=== PATIENT | male | born 1955 | race Caucasian/White ===

== ENCOUNTER 2025-08-02 09:41 | Emergency (ER) | payer MEDICARE, SELFPAY ==
[2025-08-02] VITALS (8 sets, daily range): BP systolic 140–184; BP diastolic 73–89; BMI 26.0
--- NOTE | 2025-08-02 10:02 | EDRN ---
Dr. Willard in room w / pt at this time.
--- NOTE | 2025-08-02 10:13 | ED.GENMED ---
History of Present Illness
General
Chief Complaint: Fall
Source: patient and family (Son)
Time Seen by Provider: 08/02/25 09:54
History of Present Illness
History of Present Illness:
70-year-old male brought to the emergency room for evaluation of injuries from a fall. Patient is here with his son who is providing most of the history. Patient suffered a fall this morning and was complaining of pain to in the left lateral
thorax. No shortness of breath per se but he has significant pain with movement. Son did not witness the fall but heard his father called out for help. Patient is primarily Bosnian speaking but does understand Bangladeshi to a certain extent.
Patient does not take any prescription medications but has not seen a doctor in years. Son noted that the patient has been having a decline in his history over the past year. He is very slow to answer questions with a 1 to 2-second pause sometimes
between hearing a question and answering it. Patient's movements are also very slow. Patient drinks about 8 beers a day.
Phy Exam
Physical Exam
Physical Exam:
General: Awake, Alert, Oriented X3. No acute distress. Quite thin, chronically ill-appearing
Vitals: Mild hypertension
Head: Atraumatic
Eyes: Pupils equal, EOMI
Throat: Airway intact, no exudates, dry mucosa
Neck: Trachea midline
Thorax: Tenderness palpation left lower thorax, no crepitance
Lungs: Clear and equal b/l
Heart: Regular rate, no murmurs
Abd: Soft, Nontender, No pulsatile mass
Neuro: Nonfocal
Skin: Warm, dry, no rash
Extremities: pulses equal b/l, no edema
Sepsis
Sepsis Screening
Sepsis Assessment: Sepsis Ruled Out
Sepsis Screen
Sepsis Screen: Sepsis Ruled Out
Date: 08/02/25
Time: 18:14
Course
Orders/Labs/Results
Orders:
Orders
08/02/25 10:10
CT Chest W/o Iv Contrast Urgent
Comment:
Reason For Exam: fall, left thoracic pain
08/02/25 10:11
CT Cervical Spine W/o Iv Contr Urgent
Comment:
Reason For Exam: neck pain s/p fall
CT Head W/o Iv Contrast Urgent
Comment:
Reason For Exam: fall, head injury
08/02/25 10:12
Ketorolac [Toradol] 15 mg IV NOW STA
08/02/25 10:35
Complete Blood Count/With Diff Urgent
Comprehensive Metabolic Panel Urgent
Magnesium Urgent
Phos [Phosphorus] Urgent
Abnormal Lab Results
08/02/25
10:35
WBC 12.1 H 10^3/uL
(4.8-10.8)
RBC 4.69 L 10^6/uL
(4.70-6.10)
MPV 11.1 H fL
(7.4-10.4)
Absolute Neuts (auto) 10.8 H 10^3/uL
(1.4-6.5)
Absolute Lymphs (auto) 0.7 L 10^3/uL
(1.2-3.4)
Neutrophils % 89.2 H %
(42.2-75.2)
Lymphocytes % 5.8 L %
(20.5-51.1)
Sodium 134 L mmol/L
(135-145)
BUN 5 L mg/dl
(9-20)
Creatinine 0.6 L mg/dL
(0.7-1.3)
Glucose 172 H mg/dl
(70-99)
08/02/25 10:35
08/02/25 10:35
Vital Signs
Initial and Last Documented VS:
Initial Vital Signs
Temp Pulse Resp BP Pulse Ox
98.1 F 97 24 159/88 93
08/02/25 09:42 08/02/25 09:42 08/02/25 09:42 08/02/25 09:42 08/02/25 09:42
Last Documented Vital Signs
Temp Pulse Resp BP Pulse Ox
98.3 F 92 22 143/84 94
08/02/25 14:25 08/02/25 14:25 08/02/25 14:25 08/02/25 14:25 08/02/25 14:25
MDM/Problems Addressed
Differential Diagnosis Includes:
rib fx, ptx, contusion
MDM/Problems Addressed:
Patient presents after falling at home. Workup here reveals no acute fracture. He has a chronic pneumothorax but nothing acute. Patient has not seen a physician in quite some time. He has significant muscle rigidity and slow response to
questions making me think he has some chronic neurologic disorder such as Parkinson's. Give the patient contact information for neurologist in the area. Also encouraged him to follow-up with his primary care provider.
*Radiology
Radiology exam reviewed: radiology read reviewed
*Pulse Oximetry
SaO2: 97
Oxygen Mode of Delivery: Room air
Patient hypoxic: no
*Critical Care Note
Total Time (30-74mins, 75-104mins- exclusive of procedures): Not Applicable
Patient Management
Social determinants of health affecting care: Living situation
ED Attending Note
-
Portions of this chart may have been created with voice recognition software.� Occasional wrong word or��sound alike� substitutions may have occurred due to the inherent limitations of voice recognition software.
Discharge Plan
Departure
Patient Disposition: Home (Routine Discharge)
Date of Disposition: 08/02/25
Time of Disposition: 13:58
Patient with high blood pressure during this ER visit?: Yes
Condition: Good
Discharge Problem:
Chest wall contusion, Fall
Instructions: Preventing falls in adults, Blunt chest trauma - ED (DC), BLOOD PRESSURE
Referrals:
Yun Quintanilla MD [Non-Admitting Privileges, Psychiatry]
Yfn Arrington, DO [Family Provider, Family Practice]
Elroy Gallardo MD [Active, Neurology]
Activity Restrictions/Additional Instructions:
José Miguel's testing today shows he has no broken bones or serious injuries from the fall. His blood work is normal. I noticed he has muscle stiffness and is slow to answer questions and believe this is due to a neurologic issue that maybe treatable.
I have included the names of some neurologists for you to call for an appointment. He also needs to follow up with a primary care doctor, Dr. Arrington.
Interventions
Interventions:
*Risk Screen - Suicide Last Done: 08/02/25 10:06
*General Assessment Last Done: 08/02/25 10:06
*Neglect/Abuse Screening Last Done: 08/02/25 10:06
*ED- Fall Risk Assessment Last Done: 08/02/25 10:06
*ED COVID-19 Vaccine History Last Done: 08/02/25 10:06
*Nursing Disposition Last Done: 08/02/25 14:20
ED-Musculoskeletal Assessment Last Done: 08/02/25 10:08
ED- Neurological Assessment Last Done: 08/02/25 10:08
ED-Skin Assessment Last Done: 08/02/25 10:08
Discharge Date and Time
Discharge Date/Time: 08/02/25 14:20
Print Language: THAI
[2025-08-02] MEDS: TORADOL 15 MG IV (10:38)
[2025-08-02 10:45] LABS: Hematocrit 41.0 % (39.0-52.0); Hemoglobin 13.9 g/dL (13.0-18.0); Mean Corp Hgb Conc. 33.9 g/dL (33.0-37.0); Mean Corpuscular Volume 87.4 fL (80.0-94.0); Nucleated Red Blood Cells % 0 % (-); Platelet Count 220 10^3/uL (130-400); Red Cell Dist. Width 13.2 % (11.5-14.5)
--- NOTE | 2025-08-02 10:55 | EDRN ---
Pt sat on side of stretcher to void.
[2025-08-02 11:11] LABS: ALT (SGPT) 17 U/L (0-50); AST (SGOT) 24 U/L (17-59); Albumin 3.9 g/dl (3.5-5.0); Alkaline Phosphatase 97 U/L (38-126); Blood Urea Nitrogen 5 mg/dl (9-20); Calcium 9.1 mg/dl (8.4-10.2); Carbon Dioxide 28 mmol/L (22-30); Chloride 101 mmol/L (98-107); Estimated Creatinine Clearance 90 ml/min; Glucose 172 mg/dl (70-99); Magnesium 1.9 mg/dl (1.6-2.3); Potassium 4.3 mmol/L (3.5-5.1); Sodium 134 mmol/L (135-145); Total Protein 6.6 g/dl (6.3-8.2); eGFR > 60.00
--- NOTE | 2025-08-02 13:54 | EDRN ---
Pt ambulating to BR w/ his sons at this time to have a BM.
== END 2025-08-02 14:20 | disposition home or self-care (01) ==
LOC: EMR 09:41
PROVIDERS: EMERGENCY PHYSICIAN Emergency Medicine; FAMILY PHYSICIAN Family Medicine
DX: S20.212A Contusion of left front wall of thorax, initial encounter (principal); W19.XXXA Unspecified fall, initial encounter
CPT/HCPCS: 99284; 96374; 70450; 71250; 72125; 80053; 83735; 84100; 85025